=== PATIENT | female | born 2000 | race Caucasian/White ===

== ENCOUNTER 2020-03-29 10:55 | Outpatient (CLI) | payer BC, SELFPAY ==
--- NOTE | ~2020-03-29 | US_ITS ---
US OB /maternal detail DATE: 03/29/2020 12:31 INDICATION: Unsure of RAJENDRA. anatomy screen. TECHNIQUE: Real-time imaging and Doppler analysis COMPARISON: None FINDINGS: Live antonio intrauterine gestation, fetus in variable position during examination. The p lacenta is anterior, lower margin 2 cm above the internal os. The cervix measures 3.8 cm length. Subj ectively normal amount of amniotic fluid. The cerebral ventricles are normal size. The cerebellum, cisterna magna and nuchal fold a ppear normal. The spine appears intact. 4 chamber heart. Normal outflow tracts. The diaphragm is intact. Fluid is demonstrated in the stomach and urinary bladder. The kidne ys are unremarkable. Three-vessel umbilical cord with normal insertion at abdominal wall. Biparietal diameter 4.83 cm; 20 weeks 4 days estimated gestational age Head circumference 18.35 cm; 20 weeks 5 days Abdominal circumference 15.13 cm; 20 weeks 2 days Femur length 3.26 cm; 20 weeks 1 day Composite age by Hadlock formula is 20 weeks 3 days +/- 1 week 3 days; RAJENDRA 08/13/2020 Head circumference/abdominal circumference 1.21, within normal range of 1.07-1.25 Femur length/head circumference 17.79, within normal range of 16.41, 120.01. IMPRESSION: Composite age by Hadlock formula is 20 weeks 3 days +/- 1 week 3 days; RAJENDRA 08/13/2020 Normal sonographic screening Reviewed, dictated and finalized at [facility]. Reviewed, dictated and finalized at [facility]. IMPRESSION: Composite age by Hadlock formula is 20 weeks 3 days +/- 1 week 3 da ys; RAJENDRA 08/13/2020 Normal sonographic screening
== END 2020-03-29 10:56 | disposition home or self-care (01) ==
PROVIDERS: Visit Provider Physician Assistant
DX: Z34.02 Encounter for supervision of normal first pregnancy, second trimester (principal); Z3A.20 20 weeks gestation of pregnancy
CPT/HCPCS: 76805

== ENCOUNTER 2020-06-13 13:09 | Outpatient (CLI) | payer BC, SELFPAY ==
--- NOTE | ~2020-06-13 | US_ITS ---
EXAMINATION: US OB follow up DATE: 06/13/2020 13:42 INDICATION: Routine care during third trimester TECHNIQUE: Real-time ultrasound of the pelvis was performed. The interpreting radiologist was not pre sent for the study. COMPARISON: None. FINDINGS: There is a single living fetus in vertex presentation. The placenta is anterior. heart rate is 173 beats per minute (bpm). The amniotic fluid index is 15.3 cm, which is normal (5th%-95%: 8.8-23. 8 cm at 31 weeks estimated gestational age). The following biometric data were obtained: BPD: 7.9 cm -> 31 weeks 4 days Head circumference: 30.4 cm -> 33 weeks 5 days Abdominal circumference: 25.9 cm -> 30 weeks 1 days Femur length: 5.8 cm -> 30 weeks 3 days Head circumference to abdominal circumference ratio: 1.17 (normal range 0.96-1.16). These measurements are otherwise concordant. Estimated weight: 1619 g (+/-) 253 g. or 3 lbs. 9 oz. (+/-) 9 oz. IMPRESSION: 1. Single living fetus in vertex presentation with heart rate of 173 bpm. 2. Estimated weight is 21st percentile by Hadlock criteria when 08/13/2020 is used as the estim ated date of delivery (RAJENDRA). Please correlate with clinical information or earlier ultrasounds for mo st accurate RAJENDRA. 3. Normal amniotic fluid index of 15.3 cm. 4. tachycardia with heart rate of 173 bpm. 5. Head circumference to abdominal circumference ratio of 1.17 slightly greater than normal range of 0.96-1.16. Reviewed, dictated and finalized at location [facility]. IMPRESSION: 1. Single living fetus in vertex presentation with heart rate of 173 bpm. 2. Estimated weight is 21st percentile by Hadlock criteria when 0 is used as the estimated date of delivery (RAJENDRA). Please correlate with clinic al information or earlier ultrasounds for most accurate RAJENDRA. 3. Normal amniotic fluid index of 15.3 cm. 4. tachycardia with heart rate of 173 bpm. 5. Head circumference to abdominal circumference ratio of 1.17 slightly greater than normal range of 0.96-1.16.
== END 2020-06-13 13:10 | disposition home or self-care (01) ==
LOC: ANHIMG 13:12
PROVIDERS: PCP Pediatrics; Visit Provider Physician Assistant
DX: Z34.93 Encounter for supervision of normal pregnancy, unspecified, third trimester (principal); Z3A.00 Weeks of gestation of pregnancy not specified
CPT/HCPCS: 76816

== ENCOUNTER 2020-06-15 07:44 | Outpatient (CLI) | payer BC, SELFPAY ==
[2020-06-15] MEDS: RHO(D) IMMUNE GLOBULIN 300 MCG SYRINGE IM (18:49)
== END 2020-06-15 07:45 | disposition home or self-care (01) ==
PROVIDERS: PCP Pediatrics; Visit Provider Physician Assistant
DX: Z01.83 Encounter for blood typing (principal)
CPT/HCPCS: 36415; 85461; 90384; 96372; J2790

== ENCOUNTER 2020-07-16 15:45 | Observation (INO) | payer BC, SELFPAY ==
--- NOTE | ~2020-07-16 | US_ITS ---
EXAMINATION: 1. US OB BPP wo non-stress 2. US umbilical doppler DATE: 07/17/2020 08:55 INDICATION: Small for gestational age. Third trimester. TECHNIQUE: Real-time pelvic ultrasound was performed. COMPARISON: Ultrasound 07/16/2020, 03/29/2020 FINDINGS: There is a single living fetus in vertex presentation. The placenta is anterior. heart rate is 141 beats per minute (bpm). Biophysical profile performed by the technologist: breathing (30 sec sustained breathing in 30 minutes): 2 out of 2 movement (3 gross body movements in 30 minutes): 2 out of 2 tone (one episode of zawiesx-iruibjkkc-okazcry limb movement): 2 out of 2 Amniotic fluid pocket (2 cm): 2 out of 2 Total score: 8 out of 8 Umbilical artery pulsed Doppler demonstrates a peak systolic to end-diastolic velocity ratio (S/D rat io) of 1.8 (5th percentile = 1.98, 95th percentile = 3.29). IMPRESSION: 1. Single living fetus in vertex presentation. 2. Biophysical profile 8 out of 8. 3. Low umbilical artery S/D ratio. Reviewed, dictated and finalized at location [facility]. IMPRESSION: 1. Single living fetus in vertex presentation. 2. Biophysical profile 8 out of 8. 3. Low umbilical artery S/D ratio.
--- NOTE | ~2020-07-16 | US_ITS ---
EXAMINATION: US umbilical doppler, US OB follow up w BPP EXAM DATE: 07/16/2020 17:32 INDICATION: SGA small for gestational age. BPP, EFW. 3rd trimester. TECHNIQUE: Pelvic obstetrical transabdominal sonogram was performed by a technologist. There are mu ltiple grayscale and Doppler images available for interpretation. Umbilical artery Doppler ratios and biophysical profile scores requested. Comparison is made to prior examination from 06/13/2020. FINDINGS: There is a single fetus identified in vertex presentation with a heart rate of 155 beats pe r minute. The placenta is located in the anterior fundal position. There is no sonographic evidence of retroplacental hemorrhage identified. BIOPHYSICAL PROFILE (performed by the technologist) breathing (30 sec sustained breathing in 30 minutes): 0 out of 2 movement (3 gross body movements in 30 minutes): 2 out of 2 tone (one episode of yhvmpzy-kfcbraxhp-hwnxcse limb movement): 2 out of 2 Amniotic fluid pocket (2 cm): 2 out of 2 Total score: 6 out of 8 BIOMETRIC DATA: Biparietal diameter (BPD): 31.1cm ----------------> 34 weeks 5 days. Head circumference (HC): 10.9 cm ----------------> not calculated. Abdominal circumference (AC): 29.1 cm ----------> 33 weeks 1 day. Femur length (FL): 6.5 cm --------------------------> 33 weeks 3 days. These measurements are concordant. HC/AC ratio is 1.07 (The 5th -- 95th percentile range is 0.95-1.11. Estimated weight is 2207 g +/- 331 g. This is the 4.5th percentile when the currently reported clinical gestation age 36 weeks 0 days, clinical estimated date of delivery (RAJENDRA-OPE) 08/13 is used. estimated gestational age based on measurements from this exam is 33 weeks 5 days, with an est imated date of delivery (RAJENDRA-AUA) 08/29. UMBILICAL ARTERY DOPPLER Systolic/diastolic ratios obtained as follows: Near baby: 2.1 Mid aspect: 1.8 Near Placenta: 1.7 (The 5th -- 95th percentile range is 2.0 -- 3.3). IMPRESSION: 1. Single fetus in vertex presentation with heart rate 155 beats per minute. 2. Estimated weight of 2207 grams, 4.5th percentile using the currently reported clinical gest ation age of 36 weeks 0 days, RAJENDRA(OPE) 08/13. 3. Abnormal biophysical profile score 6/8, breathing not observed. 4. 2 out of 3 umbilical artery Doppler ratios below normal. No elevated ratios. Reviewed, dictated and finalized at location [facility]. IMPRESSION: 1. Single fetus in vertex presentation with heart rate 155 beats per minute. 2. Estimated weight of 2207 grams, 4.5th percentile using the currently reported clinical gestation age of 36 weeks 0 days, RAJENDRA(OPE) 08/13. 3. Abnormal biophysical profile score 6/8, breathing not observed. 4. 2 out of 3 umbilical artery Doppler ratios below normal. No elevated ratios .
--- NOTE | 2020-07-16 15:45 | OBADM ---
This patient, Jeanine Malhotra, admitted to the OB room OB Post 113 for observation. Patient/family oriented to hospital policies and general routines including ID bracelet, bed and alarms, visiting hours, pain management, procedures, bathroom and other care routines, personal items, smoking policy, room service/diet, and visiting hours. Patient/Family are encouraged to report perceived risks to care and to ask questions if they do not understand what they are told or what they should do.
[2020-07-16 16:15] VITALS: BMI 25.4
[2020-07-16 23:28] VITALS: BP 120/58; PULSE 97
[2020-07-16 23:38] VITALS: TEMP 37.1
[2020-07-17 04:35] VITALS: BP 104/60; PULSE 110
[2020-07-17 04:42] VITALS: TEMP 37.2
[2020-07-17 06:44] VITALS: BP 120/73; PULSE 106
--- NOTE | 2020-07-17 07:29 | PC.NURSE ---
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 Baby tracing was reactive all through the night, U/S read to him with SGA (low percentile), and slow doppler study. Dr Santos wants to call [facility] for consultation and will call me with orders.
--- NOTE | 2020-07-17 07:35 | PC.NURSE ---
Cervical check was closed/soft
[2020-07-17 09:19] VITALS: BP 120/73; PULSE 106; TEMP 37.2
[2020-07-17 09:37] LABS: Basophils Percent Auto 0.5 % (0.2-1.2); Eosinophils Percent Auto 0.3 % (0-4.4); Hematocrit 29.7 % (37.0-47.0); Immature Granulocyte Absolute 0.04 K/mm3 (0.00-0.031); Immature Granulocyte Percent A 0.5 % (0-0.5); Lymphocytes Absolute Auto 2.33 K/mm3 (0.9-3.2); Lymphocytes Percent Auto 26.8 % (18.3-44.2); Mean Corpuscular HGB Conc 30.3 g/dl (32-36); Mean Corpuscular Hemoglobin 22.4 pg (26-34); Mean Corpuscular Volume 73.9 fl (80-100); Mean Platelet Volume 11.6 fl (7.4-10.4); Monocytes Absolute Auto 0.6 K/mm3 (0.1-0.6); Neutrophils Absolute Auto 5.7 K/mm3 (1.3-6.7); Neutrophils Percent Auto 64.9 % (45.5-73.1); Nucleated Red Blood Cells Perc 0.5 % (0.0-0.2); Platelet Count Result 185 k/mm3 (150-375); Red Blood Count 4.02 M/mm3 (4.2-5.4); Red Cell Distribution Width 17.5 % (11.5-14.5); White Blood Count 8.7 K/mm3 (4.5-10.0)
[2020-07-17 09:46] LABS: Alanine Aminotransferase 15 U/L (4-35); Albumin Level 3.4 g/dL (3.5-5.1); Alkaline Phosphatase 145 U/L (38-126); Anion Gap 9 mmol/L (8-16); Aspartate Amino Transferase 27 U/L (14-36); Bilirubin,Total 0.3 mg/dL (0.2-1.3); Blood Urea Nitrogen 9 mg/dL (7-17); Calcium 9.2 mg/dL (8.4-10.2); Carbon Dioxide 22 mmol/L (22-30); Chloride 105 mmol/L (98-107); Estimated CRCL calculation 121 ml/min; Estimated Glomerular Filt Rate > 60; Glucose 77 mg/dL (65-105); Potassium 3.8 mmol/L (3.4-5.0); Sodium 136 mmol/L (137-145); Uric Acid 4.6 mg/dL (2.5-7.5)
--- NOTE | 2020-07-17 10:12 | PC.NURSE ---
Dr Santos here and explained process well to patient. Discussed with MFMelodie at [facility] and decided to send pt there for an evaluation of measurements. They accepted and we will discharge and send her there.
--- NOTE | 2020-07-17 10:18 | P.PNOB_ITS ---
OB - Triage/Final Diagnosis Visit Information Date of evaluation: 07/16/20 Reason for evaluation: other ( growth restriction) Evaluation Baseline heart rate: 135 Variability: Average (6-10) monitor accelerations: Present monitor decelerations: None Cervical dilation (cm): 0 Cervical effacement (%): 0 station: -3 Laboratory results: Laboratory Tests 07/17/20 07/17/20 09:29 09:29 WBC 8.7 RBC 4.02 L Hgb 9.0 L Hct 29.7 L MCV 73.9 L MCH 22.4 L MCHC 30.3 L RDW 17.5 H Plt Count 185 MPV 11.6 H Immature Gran % (Auto) 0.5 Neut % (Auto) 64.9 Lymph % (Auto) 26.8 Door % (Auto) 7.0 Eos % (Auto) 0.3 Baso % (Auto) 0.5 Lymph # (Auto) 2.33 Door # (Auto) 0.6 Eos # (Auto) 0.0 Baso # (Auto) 0.0 Abs Immat Gran (auto) 0.04 H Absolute Neuts (auto) 5.7 Absolute Nucleated RBC 0.0 Nucleated RBC % 0.5 H % Immature Plt Fraction 11.0 Sodium 136 L Potassium 3.8 Chloride 105 Carbon Dioxide 22 Anion Gap 9 BUN 9 Creatinine 0.50 L Estim Creat Clear Calc 121 Estimated GFR > 60 Glucose 77 Uric Acid 4.6 Calcium 9.2 Total Bilirubin 0.3 AST 27 ALT 15 Alkaline Phosphatase 145 H Total Protein 7.0 Albumin 3.4 L Vital signs: Vital Signs - 24 hr 07/16/20 23:28 07/16/20 23:38 07/17/20 04:35 Temperature 98.7 F Pulse Rate 97 110 H Blood Pressure 120/58 L 104/60 07/17/20 04:42 07/17/20 06:44 07/17/20 09:19 Temperature 99 F 99 F Pulse Rate 106 H 106 H Blood Pressure 120/73 120/73 Final Diagnosis (1) growth restriction: Status: Acute Plan: discussed with Ki JOSHI at [facility] He recommends patient coming to the evaluation unit at his high risk clinic today 07/17/2020 to have a repeat Doppler study including middle cerebral artery flow to look for cephalization and if needed delivery I discussed the patient condition and the plan of management the patient and her partner understand and accept I will discharge patient from [facility] from [facility] and send the patient directly to [facility] (2) Heterozygous MTHFR mutation 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
== END 2020-07-17 10:26 | disposition home or self-care (01) ==
PROVIDERS: Admitting Provider Obstetrics & Gynecology; PCP Pediatrics; Visit Provider Obstetrics & Gynecology
DX: O36.5930 Maternal care for other known or suspected poor fetal growth, third trimester, not applicable or unspecified (principal); O35.2XX0 Maternal care for (suspected) hereditary disease in fetus, not applicable or unspecified; E72.12 Methylenetetrahydrofolate reductase deficiency; Z3A.36 36 weeks gestation of pregnancy
CPT/HCPCS: 36415; 76816; 76819; 76820; 80053; 84550; 85025; 85055; G0378; G0379

== ENCOUNTER 2020-08-10 02:42 | Inpatient (IN) | payer BC, SELFPAY ==
[2020-08-10] VITALS (100 sets, daily range): BP systolic 85–152; BP diastolic 51–104; PULSE 84–189; RESP 20; TEMP 36.5–37.1; O2SAT 85–100; BMI 25.9
--- NOTE | 2020-08-10 03:31 | LDADM ---
This patient, Jeanine Malhotra, was admitted to Labor/Delivery/Recovery 106 on 08/10/20 at 02:42. Plans for labor, pain management and were discussed with patient. Patient/family oriented to hospital policies and general routines including ID bracelet, bed and alarms, visiting hours, pain management, procedures, bathroom and other care routines, personal items, smoking policy, room service/diet and guest tray routines, security routines, and visiting hours. Patient/Family are encouraged to report perceived risks to care and to ask questions if they do not understand what they are told or what they should do. See OBIX for further documentation.
[2020-08-10 03:36] LABS: Basophils Percent Auto 0.4 % (0.2-1.2); Eosinophils Absolute Auto 0.1 K/mm3 (0-0.3); Eosinophils Percent Auto 0.6 % (0-4.4); Hematocrit 35.7 % (37.0-47.0); Hemoglobin 10.8 g/dL (12.0-15.0); Immature Granulocyte Absolute 0.04 K/mm3 (0.00-0.031); Immature Granulocyte Percent A 0.4 % (0-0.5); Immature Platelet Fraction Pct 12.7 % (0.9-11.2); Lymphocytes Absolute Auto 3.12 K/mm3 (0.9-3.2); Lymphocytes Percent Auto 31.4 % (18.3-44.2); Mean Corpuscular HGB Conc 30.3 g/dl (32-36); Mean Corpuscular Hemoglobin 22.9 pg (26-34); Mean Corpuscular Volume 75.6 fl (80-100); Monocytes Absolute Auto 0.8 K/mm3 (0.1-0.6); Monocytes Percent Auto 7.6 % (2.6-8.5); Neutrophils Absolute Auto 5.9 K/mm3 (1.3-6.7); Neutrophils Percent Auto 59.6 % (45.5-73.1); Platelet Count Result 206 k/mm3 (150-375); Red Blood Count 4.72 M/mm3 (4.2-5.4); Red Cell Distribution Width 24.2 % (11.5-14.5); White Blood Count 9.9 K/mm3 (4.5-10.0)
[2020-08-10] MEDS: LACTATED RINGERS 1,000 ML 125 ML IV CONT ×3 (08:30→14:39)
[2020-08-10] MEDS: OXYTOCIN 30 UNITS/NS 500 ML 30 UNITS/500 ML BAG 125 UNITS IV CONT ×2 (08:37→23:46)
--- NOTE | 2020-08-10 11:15 | PM.IMHP ---
H&P: HPI History of Present Illness Date/Time: 08/10/20 11:15 Chief complaint: SROM Narrative: Jeanine Malhotra is a 19 year old female at 39 weeks and 4 days gestation initially presented to labor and delivery triage with reports of leaking of fluid. Spontaneous rupture of membranes was confirmed on exam in Labor and delivery triage she was noted to be 2 cm dilated. She has regular care with Dr. Santos. She has no other complaints at this time. Review of Systems Constitutional: Constitutional: Reports no additional constitutional complaints Eyes: Eyes: Reports no additional eye complaints ENT: Reports system reviewed and no additional complaints, except as documented Cardiovascular: Cardiovascular: Reports no additional cardiovascular complaints Respiratory: Respiratory: Reports no additional respiratory complaints Gastrointestinal: Gastrointestinal: Reports no additional gastrointestinal complaints Genitourinary: Genitourinary: Reports no additional female genitourinary complaints Musculoskeletal: Musculoskeletal: Reports no additional musculoskeletal complaints Integumentary/Breasts: Skin/Breast: Reports system reviewed and no additional complaints, except as docu Neurologic: Reports system reviewed and no additional complaints, except as documented Psychiatric: Psychiatric: Reports no additional psychiatric complaints Endocrine: Endocrine: Reports no additional endocrine complaints Hematologic/Lymphatic: Hematologic/Lymphatic: Reports no additional hematologic/lymphatic complaints Allergic/Immunologic: Allergic/Immunologic: Reports no additional allergic/immunologic complaints PMFSH Past Medical History Medical History growth restriction Heterozygous MTHFR mutation [id number] Family History Family History Other No pertinent family history Social History Social History Smoking status: Never smoker Substance use: never Gender identity (if verbalized by the patient): Female Spiritual care concerns: No Meds Home Medications and Allergies Home Medications Medication Instructions Recorded Confirmed Type PNV cmb#95-ferrous fumarate-FA 1 tablet PO DAILY 07/15/20 08/10/20 History [] ferrous sulfate 325 mg PO DAILY 08/10/20 08/10/20 History Allergies Allergy/AdvReac Type Severity Reaction Status Date / Time No Known Allergies Allergy Verified 07/15/20 14:32 Vital Signs Vital Signs - 24 hr 08/10/20 02:57 08/10/20 03:15 08/10/20 03:30 Temperature Pulse Rate 134 H 124 H 120 H Respiratory Rate Blood Pressure 131/90 129/87 121/81 08/10/20 03:45 08/10/20 04:00 08/10/20 04:15 Temperature 36.8 C Pulse Rate 120 H 117 H 108 H Respiratory Rate Blood Pressure 116/81 124/78 124/78 08/10/20 04:30 08/10/20 04:46 08/10/20 05:00 Temperature Pulse Rate 114 H 99 98 Respiratory Rate Blood Pressure 116/77 104/59 L 99/64 L 08/10/20 05:15 08/10/20 05:30 08/10/20 08:28 Temperature 36.5 C Pulse Rate 99 96 119 H Respiratory Rate 20 Blood Pressure 109/65 109/63 145/98 H 08/10/20 08:38 08/10/20 09:18 08/10/20 09:30 Temperature 37.0 C Pulse Rate 109 H 115 H Respiratory Rate Blood Pressure 121/87 130/87 08/10/20 09:52 08/10/20 10:01 08/10/20 10:30 Temperature 36.9 C Pulse Rate 102 H 105 H Respiratory Rate Blood Pressure 128/87 135/95 H Exam Const: General: cooperative, healthy appearing, comfortable, no acute distress, well developed, alert, awake and Physically active Nutritional Appearance: average body habitus Orientation/consciousness: oriented to person, oriented to place, oriented to time and patient oriented x3 Limitations: no limitations HENMT: Head: normocephalic and atraumatic Eyes: General: appearance normal, both eyes and all
--- NOTE | 2020-08-10 11:24 | WPDHPUPDATE1 ---
History and Physical Update Update Date/Time: 08/10/20 11:24 History and Physical has been reviewed, including an updated exam of the patient. There are NO changes in the patient's condition. Risks, benefits, and alternatives have been discussed and questions answered. Patient agrees to proceed with procedure.
[2020-08-10] MEDS: fentaNYL CITRATE INJ (*CRX) 100 MCG/2 ML VIAL IV PUSH ×2 (11:25→12:38)
--- NOTE | 2020-08-10 12:04 | WPDANESEPP ---
Anes - Eval Pre Procedure Procedure: Labor Epidural Date/Time: 08/10/20 12:04 Pre Op Diagnosis: SROM Patient Data Age: 19 Gender: F Height: 1.59 m Weight: 65.5 kg Last Vital Signs Temp 36.9 C 08/10/20 09:52 Pulse 94 08/10/20 12:01 Resp 20 08/10/20 05:30 BP 119/85 08/10/20 12:01 Allergies Allergy/AdvReac Type Severity Reaction Status Date / Time No Known Allergies Allergy Verified 07/15/20 14:32 Home Medications Medication Instructions Recorded Confirmed Type PNV cmb#95-ferrous fumarate-FA 1 tablet PO DAILY 07/15/20 08/10/20 History [] ferrous sulfate 325 mg PO DAILY 08/10/20 08/10/20 History Laboratory Tests 08/10/20 08/10/20 08/10/20 03:24 03:24 03:24 WBC 9.9 K/mm3 K/mm3 (4.5-10.0) RBC 4.72 M/mm3 M/mm3 (4.2-5.4) Hgb 10.8 g/dL L g/dL (12.0-15.0) Hct 35.7 % L % (37.0-47.0) MCV 75.6 fl L fl (80-100) MCH 22.9 pg L pg (26-34) MCHC 30.3 g/dl L g/dl (32-36) RDW 24.2 % H % (11.5-14.5) Plt Count 206 k/mm3 k/mm3 (150-375) MPV TNP Immature Gran % (Auto) 0.4 % % (0-0.5) Neut % (Auto) 59.6 % % (45.5-73.1) Lymph % (Auto) 31.4 % % (18.3-44.2) Bradley % (Auto) 7.6 % % (2.6-8.5) Eos % (Auto) 0.6 % % (0-4.4) Baso % (Auto) 0.4 % % (0.2-1.2) Lymph # (Auto) 3.12 K/mm3 K/mm3 (0.9-3.2) Bradley # (Auto) 0.8 K/mm3 H K/mm3 (0.1-0.6) Eos # (Auto) 0.1 K/mm3 K/mm3 (0-0.3) Baso # (Auto) 0.0 K/mm3 K/mm3 (0.0-0.1) Abs Immat Gran (auto) 0.04 K/mm3 H K/mm3 (0.00-0.031) Absolute Neuts (auto) 5.9 K/mm3 K/mm3 (1.3-6.7) Absolute Nucleated RBC 0.0 K/mm3 K/mm3 (0.0-0.012) Nucleated RBC % 0.0 % % (0.0-0.2) % Immature Plt Fraction 12.7 % H % (0.9-11.2) RPR Pending Blood Type O Negative Antibody Screen Positive Antibody Identification Passive Due to RH Imm Glob Antigen Identification Cancelled JENNIFER, IgG Interpret Negative JENNIFER, Poly Interpret Negative JENNIFER, Complement Interp Not Performed Patient hx anesthesia problems: none Family hx anesthesia problems: none PMFSH Past Medical History Medical History growth restriction Heterozygous MTHFR mutation [id number] Family History Family History Other No pertinent family history Social History Social History Smoking status: Never smoker Substance use: never Gender identity (if verbalized by the patient): Female Spiritual care concerns: No Exam Day of Procedure 08/10/20 12:04 Patient weight: normal Heart: regular rate and rhythm Lungs: normal air movement Airway: Mallampati scale class II Neurological: alert and oriented
[2020-08-10] MEDS: AMPICILLIN 2 GM/NS 100 ML 2 GM/100 ML BAG IVPB (19:56)
[2020-08-11] VITALS (31 sets, daily range): BP systolic 126–149; BP diastolic 83–102; PULSE 101–127; RESP 12–16; TEMP 36.8–37.1; O2SAT 99–100
--- NOTE | 2020-08-11 | PM.OBPRVD ---
OB - Delivery Note Procedure Delivery date: 08/10/20 Procedure: Normal spontaneous vaginal delivery events: Premature Rupture of Membrane Induction method: per pitocin protocol Delivery monitor: external FHT, external uterine and internal uterine Route of delivery: Laceration Description: Perineal - 2nd Degree and Labial (bilateral) Delivery repair: vicryl Specimen: No Estimated blood loss (mL): 200 Anesthesia type: Epidural Narrative: Once she was noted to be complete and ready to push, the labor bed was broken down and legs were placed in stirrups for support. With contractions and maternal efforts, the presented in ANDIE position. The head was delivered. Checked for nuchal cord, loose nuchal cordx1 noted and reduced. Gentle downward traction was applied and the anterior shoulder delivered without issues, followed by the posterior shoulder and rest of the body. was vigorous and crying, so delayed cord clamping of approximately 1 minute was performed. The cord was clamped and cut. Cord gasses collected. Placenta was delivered spontaneously. IV oxytocin administered and fundal massage applied. Exam was performed to identify any lacerations. 2nd degree perineal laceration was repaired with 2-0 Vicryl. Bilateral labial tears repaired with 2-0 Vicryl. Good hemostasis noted. Patient tolerated the procedure well. All instrument and sponge counts were correct at the end of the procedure. Baby Date of : 08/10/20 Time of : 23:18 Weeks of gestation at delivery: 39 Infant gender: Male Weight (pounds): 7 Weight (ounces): 5 presentation: vertex position: Left Occiput Anterior Placenta delivery description: Spontaneous cord vessel description: 3 Vessels score one minute: 8 score five minutes: 9
[2020-08-11] MEDS: WITCH HAZEL 40 PADS 1 PAD TOPICAL (01:01)
[2020-08-11] MEDS: BENZOCAINE 20% AER SPR (*SP) 56 GM CAN 1 SPRAY TOPICAL (01:01)
[2020-08-11] MEDS: IBUPROFEN 600 MG TABLET PO ×3 (01:01→21:36)
[2020-08-11] MEDS: ACETAMINOPHEN 325 MG TABLET 650 MG PO (01:03)
[2020-08-11] MEDS: ONDANSETRON INJ 4 MG/2 ML VIAL IV PUSH (01:50)
[2020-08-11 02:00] LABS: Hematocrit 29.4 % (37.0-47.0); Hemoglobin 8.8 g/dL (12.0-15.0); Immature Platelet Fraction Pct 10.9 % (0.9-11.2); Mean Corpuscular HGB Conc 29.9 g/dl (32-36); Mean Corpuscular Hemoglobin 22.4 pg (26-34); Platelet Count Result 157 k/mm3 (150-375); Red Blood Count 3.92 M/mm3 (4.2-5.4); Red Cell Distribution Width 24.1 % (11.5-14.5); White Blood Count 14.9 K/mm3 (4.5-10.0)
[2020-08-11 02:15] LABS: Alanine Aminotransferase 14 U/L (4-35); Albumin Level 2.6 g/dL (3.5-5.1); Alkaline Phosphatase 142 U/L (38-126); Anion Gap 9 mmol/L (8-16); Aspartate Amino Transferase 36 U/L (14-36); Bilirubin,Total 0.3 mg/dL (0.2-1.3); Blood Urea Nitrogen 14 mg/dL (7-17); Calcium 8.5 mg/dL (8.4-10.2); Carbon Dioxide 18 mmol/L (22-30); Chloride 109 mmol/L (98-107); Estimated CRCL calculation 103 ml/min; Estimated Glomerular Filt Rate > 60; Glucose 90 mg/dL (65-105); Potassium 3.9 mmol/L (3.4-5.0); Sodium 136 mmol/L (137-145)
[2020-08-11 02:33] LABS: Creatinine Urine 140.6 mg/dL
[2020-08-11] MEDS: LACTATED RINGERS 500 ML 999 ML IV CONT (02:54)
--- NOTE | 2020-08-11 03:00 | ECG_ITS ---
Measurements Intervals [place]itt Rate: 111 P: 35 WV: 115 QRS: 92 QRSD: 85 T: 0 QT: 301 QTc: 409 Interpretive Statements SINUS TACHYCARDIA WITH SHORT WV INTERVAL RIGHT AXIS DEVIATION NONSPECIFIC T-WAVE ABNORMALITY- ANT/INF LEADS ABNORMAL ECG Electronically Signed On 08-11-2020 9:01:48 DENTAL LABORATORY TECHNICIAN by Bryan Bee D.O.
[2020-08-11] MEDS: miSOPROStol 200 MCG TABLET 1000 MCG RECTAL (07:27)
--- NOTE | 2020-08-11 08:40 | PM.OBPNVD ---
OB - PN: Subj Subjective Date/time seen: 08/11/20 08:40 S/p on 08/10. Patient states she is doing well. Pain is controlled. Tolerating diet. Some lightheadedness with quick movement. Denies headaches, blurry vision, scotomas. OB - PN: Obj Data Labs CBC & Chem 7: 08/11/20 01:25 08/11/20 01:25 Labs: Laboratory Results - last 24 hr 08/11/20 08/11/20 08/11/20 01:25 01:25 01:39 WBC 14.9 H RBC 3.92 L Hgb 8.8 L Hct 29.4 L MCV 75.0 L MCH 22.4 L MCHC 29.9 L RDW 24.1 H Plt Count 157 MPV TNP % Immature Plt Fraction 10.9 Sodium 136 L Potassium 3.9 Chloride 109 H Carbon Dioxide 18 L Anion Gap 9 BUN 14 D Creatinine 0.60 L Estim Creat Clear Calc 103 Estimated GFR > 60 Glucose 90 Calcium 8.5 Total Bilirubin 0.3 AST 36 ALT 14 Alkaline Phosphatase 142 H Total Protein 5.0 L Albumin 2.6 L Urine Creatinine 140.6 OB - PN A/P Assessment and Plan (1) (normal spontaneous vaginal delivery): Code(s): O80 - Encounter for full-term uncomplicated delivery Status: Acute Assessment and Plan: Routine care Pain management Ambulate (2) Premature rupture of membranes: Code(s): O42.90 - Premature rupture of membranes, unspecified as to length of time between rupture and onset of labor, unspecified weeks of gestation Status: Acute (3) Gestational HTN: Code(s): O13.9 - Gestational [-induced] hypertension without significant proteinuria, unspecified trimester Status: Acute Assessment and Plan: Pre-E labs WNL. Monitor signs and symptoms Time Spent With Patient Time: Total time spent is greater than 50% in coordination of care (as documented) at patient's floor/unit and/or counseling patient: Exam Const: General: cooperative, healthy appearing, comfortable and no acute distress Resp: Effort & Inspection: normal respiratory effort and able to speak in complete sentences Cardio: Rate: tachycardic GI: GI Palp: Yes Soft to palpation and No Tenderness to palpation present (GI) : Manual OB Exam: Deferred manual OB exam Neuro: General: oriented to person, oriented to place, oriented to time and patient oriented x3 Psych: Appearance: grossly normal Mental Status: mental status grossly normal
[2020-08-11] MEDS: DOCUSATE SODIUM 100 MG CAPSULE PO (11:53)
[2020-08-11] MEDS: MULTIVIT/MIN/PREN/FOL AC/IRON TABLET 1 TAB PO (11:54)
[2020-08-11] MEDS: POLYSACCHARIDE IRON COMPLEX 150 MG CAPSULE PO (11:54)
--- NOTE | 2020-08-11 13:15 | WPDANLDPN2 ---
Anes-Prog Note L&D Date/Time: 08/11/20 13:15 Comfortable throughout: labor and delivery Neuraxial method: epidural Epidural/Spinal procedure site: clean & non-tender Neuro status: Neuro function grossly intact. Cardiovascular status: normal Respiratory status: normal Airway patency: baseline Mental status: baseline Post-Op hydration status: normal Vital Signs: Last Vital Signs Temp 36.8 C 08/11/20 03:55 Pulse 116 H 08/11/20 03:55 Resp 16 08/11/20 03:55 BP 144/91 H 08/11/20 03:55 Pulse Ox 100 08/11/20 03:22 Pain score (VAS): 0/10. Patient resting in bed at time of assessment, appears comfortable. Support person at bedside. I/O: Intake & Output 08/10/20 08/11/20 08/11/20 23:59 07:59 15:59 Output Total 446 Balance -446 Post-procedural complaints: none Patient feedback: Patient satisfied with anesthetic care.
[2020-08-11] MEDS: HYDROcodone/acetaminophen (*CRX) 5-325 MG TABLET 1 TAB PO ×2 (15:57→21:37)
[2020-08-12] MEDS: HYDROcodone/acetaminophen (*CRX) 5-325 MG TABLET 1 TAB PO (04:58)
[2020-08-12 05:28] LABS: Hematocrit 25.5 % (37.0-47.0); Hemoglobin 7.6 g/dL (12.0-15.0)
--- NOTE | 2020-08-12 07:36 | PM.GYNPNOP ---
LINE MOVER - A/P Assessment and plan (1) (normal spontaneous vaginal delivery): Code(s): O80 - Encounter for full-term uncomplicated delivery Status: Acute Assessment and Plan: Routine care Pain management Ambulate (2) Premature rupture of membranes: Code(s): O42.90 - Premature rupture of membranes, unspecified as to length of time between rupture and onset of labor, unspecified weeks of gestation Status: Acute (3) Gestational HTN: Code(s): O13.9 - Gestational [-induced] hypertension without significant proteinuria, unspecified trimester Status: Acute Assessment and Plan: Pre-E labs WNL. Monitor signs and symptoms (4) Urinary retention: Code(s): R33.9 - Retention of urine, unspecified Status: Acute Assessment and Plan: Remove herrera this morning Voiding trial Time Spent With Patient Time: Total time spent is greater than 50% in coordination of care (as documented) at patient's floor/unit and/or counseling patient: Time with patient: 15 - 25 minutes LINE MOVER- PN:Subj Post-Op Subjective Date/time seen: 08/12/20 07:36 S/p on 08/10. Patient states she is doing well. Perineal swelling is improving. Had urinary retention, indwelling catheter was placed yesterday and is draining clear urine. Exam Const: General: cooperative, healthy appearing, comfortable, no acute distress, well developed, alert, awake and Physically active Nutritional Appearance: average body habitus Orientation/consciousness: oriented to person, oriented to place, oriented to time and patient oriented x3 Limitations: no limitations HENMT: Head: normocephalic and atraumatic Eyes: General: appearance normal, both eyes and all related structures Resp: Effort & Inspection: normal respiratory effort and able to speak in complete sentences Cardio: Rate: regular rate Neuro: General: oriented to person, oriented to place, oriented to time and patient oriented x3 Cognition (Neuro): normal cognition Speech: normal speech Psych: Appearance: grossly normal Mental Status: mental status grossly normal Speech and movement: Normal speech and movement present LINE MOVER - PN: Obj Data Vital Signs Vital Signs: Vital Signs - 24 hr 08/11/20 18:55 Temperature 37.1 C Pulse Rate 101 H Respiratory Rate 12 Blood Pressure 132/85 Pulse Oximetry 100 Intake/Output Intake/Output: Intake & Output 11/1308/10/20 08/11/20 08/12/20 23:59 23:59 23:59 23:59 Intake Total 2500 Output Total 2796 Balance 2500 -2796 Meds/Results Medications: Active Medications Generic Name Dose Route Start Last Admin Trade Name Freq PRN Reason Stop Dose Admin Acetaminophen 650 mg 08/11/20 00:03 08/11/20 01:03 Acetaminophen 325 Mg Tablet PO 650 mg Q6H PRN Administration Mild Pain (1-3) or Headache Hydrocodone Bitart/Acetaminophen 1 tab 08/11/20 15:00 08/12/20 04:58 Hydrocodone/Acetaminophen (*Crx) 5-325 Mg Tablet PO 1 tab Q3HR PRN Administration Pain Rated 4-6 Benzocaine 1 spray 08/11/20 00:03 08/11/20 01:01 Benzocaine 20% Aer Spr (*Sp) 56 Gm Can TOPICAL 1 spray PRN PRN Administration Perineal Discomfort Dibucaine 1 applic 08/11/20 00:03 Dibucaine 1% Ointment 30 Gm Tube TOPICAL PRN PRN Hemorrhoids Docusate Sodium 100 mg 08/11/20 00:03 08/11/20 11:53 Docusate Sodium 100 Mg Capsule PO 100 mg BID PRN Administration Constipation Emollient Ointment 1 applic 08/11/20 00:03 Lanolin (Lansinoh) 7.5 Gm Cream TOPICAL PRN PRN Sore Nipples Ibuprofen 600 mg 08/11/20 00:03 08/11/20 21:36 Ibuprofen 600 Mg Tablet PO 600 mg Q6H PRN Administration Cramping Naloxone HCl 0.1 mg 08/10/20 03:10 Naloxone Hcl 0.4 Mg/Ml Vial IV PUSH Q2M PRN Respiratory rate less than 10 Naloxone HCl 0.1 mg 08/10/20 12:07 Naloxone Hcl 0.4 Mg/Ml Vial IV PUSH ONCE PRN for resp.
[2020-08-12 07:55] VITALS: BP 125/78; PULSE 94; RESP 16; TEMP 37.1; O2SAT 100
[2020-08-12] MEDS: MULTIVIT/MIN/PREN/FOL AC/IRON TABLET 1 TAB PO (08:08)
[2020-08-12] MEDS: DOCUSATE SODIUM 100 MG CAPSULE PO (08:08)
[2020-08-12] MEDS: IBUPROFEN 600 MG TABLET PO (08:08)
[2020-08-12] MEDS: POLYSACCHARIDE IRON COMPLEX 150 MG CAPSULE PO (08:08)
[2020-08-12 12:29] LABS: Rapid Plasma Reagin Non-Reactive (NonReactive)
[2020-08-12] MEDS: RHO(D) IMMUNE GLOBULIN 300 MCG SYRINGE IM (13:11)
--- NOTE | 2020-08-12 15:00 | PC.NURSE ---
Patient instructed to view the discharge video Mother & Baby Care, The First Two Weeks online. Patient was given the opportunity and encouraged to ask questions. Patient verbalized understanding of information shared and has been given the mother/baby guide for home reference.
--- NOTE | 2020-08-12 16:57 | PM.OBDSVD ---
DS: Admitting Diagnosis Admitting Diagnosis Admitting Diagnosis: SROM DS: Discharge Diagnosis Discharge Diagnosis (1) (normal spontaneous vaginal delivery): Code(s): O80 - Encounter for full-term uncomplicated delivery Status: Acute (2) Gestational HTN: Code(s): O13.9 - Gestational [-induced] hypertension without significant proteinuria, unspecified trimester Status: Acute OB - DS: Summary OB Procedures : None OB Procedures Intrapartum: Spontaneous Vag Delivery OB Procedures: : None Status at Discharge Overall status at discharge: patient is progressing back to baseline Time Spent with Patient Time attestation: Total time spent providing and/or coordinating discharge services: Exam Const: General: cooperative, healthy appearing, comfortable, no acute distress, well developed, alert, awake and Physically active Nutritional Appearance: average body habitus Orientation/consciousness: oriented to person, oriented to place, oriented to time and patient oriented x3 Limitations: no limitations HENMT: Head: normocephalic and atraumatic Eyes: General: appearance normal, both eyes and all related structures Resp: Effort & Inspection: normal respiratory effort and able to speak in complete sentences Cardio: Rate: regular rate GI: GI Palp: No abdominal tenderness and Yes Soft to palpation Other: fundus firm Neuro: General: oriented to person, oriented to place, oriented to time and patient oriented x3 Cognition (Neuro): normal cognition Speech: normal speech Psych: Appearance: grossly normal Mental Status: mental status grossly normal Speech and movement: Normal speech and movement present DS: Data Data Completed and Pending Labs on day of discharge: Labs from last 24 hours 08/12/20 08/12/20 08/10/20 04:31 04:31 03:24 Hgb 7.6 L Hct 25.5 L RPR Non-reactive Blood Type O Negative Antibody Screen TNP Screen Negative Baby's Blood Type O pos Baby's JENNIFER Negative Doses of RhIg Required 1 Discharge Plan Discharge Attending physician on discharge: Jeannette Bach Discharging Clinician: Jeannette Bach Patient Disposition: Home, Self-Care Activity: may shower, as tolerated and pelvic rest Diet: regular Discharge Instructions: Education: Mom and Baby Guide and Preeclampsia Handout Given to: Mother Follow-Up: Call your delivering provider's office for an appointment to be seen in: 3 weeks Mom and baby should come to the [facility] for the follow-up appointment. Appointment Date/Time: August 14, 2020 at 11:00 am What to expect at your follow-up visit: Physical Assessment Call [phone] if you are unable to keep your appointment time. BREAST CARE: * Wear a snug supportive bra. * For engorgement discomfort: Bottle Feeding: * May apply ice packs EPISIOTOMY/PERINEAL CARE: * Until bleeding stops, use your madhuri bottle after urinating * Change your pad frequently throughout the day * You may take sitz baths several times a day (fill your bathtub with warm water and soak for 20 minutes.) Do NOT bathe in the water * No tub baths until seen by your physician - You may shower ACTIVITY: * Rest as much as possible. * Do not exercise or lift anything heavier than your baby (such as laundry or other children.) * Avoid stairs or driving as much as possible. * Do not put anything into the vagina. No douching, tampons, or sexual activity until seen by physician. NOTIFY PHYSICIAN IF YOU HAVE ANY QUESTIONS OR IF ANY OF THE FOLLOWING SYMPTOMS OCCUR: * If your episiotomy or perineum becomes more red, swollen, or painful than what you have experienced in the hospital. * If your vaginal bleeding becomes foul smelling. * If your vaginal bleeding becomes more heavy than a period or if your bleeding changes from pink to bright red. However, you may pass an occasional wal
== END 2020-08-12 15:47 | disposition home or self-care (01) | DRG 560 ==
LOC: ANHLDR 03:17 → ANHOB2 08-12 08:35 → ANHLDR 08-14 09:52 → ANHOB2 08-14 09:52
PROVIDERS: Admitting Provider Obstetrics & Gynecology; PCP Pediatrics; Visit Provider Obstetrics & Gynecology
DX: O42.92 Full-term premature rupture of membranes, unspecified as to length of time between rupture and onset of labor (principal); Z37.0 Single live birth; Z3A.39 39 weeks gestation of pregnancy; O99.284 Endocrine, nutritional and metabolic diseases complicating childbirth; E72.12 Methylenetetrahydrofolate reductase deficiency; O70.1 Second degree perineal laceration during delivery; O69.81X0 Labor and delivery complicated by cord around neck, without compression, not applicable or unspecified; O13.4 Gestational [pregnancy-induced] hypertension without significant proteinuria, complicating childbirth; O99.893 Other specified diseases and conditions complicating puerperium; R33.9 Retention of urine, unspecified
CPT/HCPCS: 36415; 80053; 82570; 84112; 85014; 85018; 85025; 85027; 85055; 85461; 86592; 86850; 86880; 86900; 86901; 90384; 93005; A9270; J0290; J2405; J2590; J2790; J2795; J3010; J7120

== ENCOUNTER 2020-08-13 02:05 | Observation (INO) | payer BC, SELFPAY ==
[2020-08-13] VITALS (33 sets, daily range): BP systolic 123–157; BP diastolic 80–100; PULSE 89–113; RESP 15–18; TEMP 36.4–37.1; BMI 26.4
--- NOTE | 2020-08-13 02:00 | OBADM ---
This patient, Jeanine Malhotra, admitted to the OB room OB Post 117 for observation. Patient/family oriented to hospital policies and general routines including ID bracelet, bed and alarms, visiting hours, pain management, procedures, bathroom and other care routines, personal items, smoking policy, room service/diet, and visiting hours. Patient/Family are encouraged to report perceived risks to care and to ask questions if they do not understand what they are told or what they should do.
--- NOTE | 2020-08-13 02:00 | PC.NURSE ---
Patient states she delivered 08/10. Discharged home today. States she felt like her blood pressure was high onset 1 hour ago. Symptoms included feeling like heart was pounding in her head. NO headache. States she had a fullness in her head. Pt denies high blood pressure with . States her blood pressures were elevated post .
[2020-08-13] MEDS: LABETALOL HCL 100 MG TABLET PO ×2 (02:40→04:47)
[2020-08-13 02:43] LABS: Basophils Percent Auto 0.3 % (0.2-1.2); Eosinophils Absolute Auto 0.1 K/mm3 (0-0.3); Eosinophils Percent Auto 1.4 % (0-4.4); Hematocrit 24.4 % (37.0-47.0); Hemoglobin 7.4 g/dL (12.0-15.0); Immature Granulocyte Absolute 0.07 K/mm3 (0.00-0.031); Immature Granulocyte Percent A 0.7 % (0-0.5); Immature Platelet Fraction Pct 7.3 % (0.9-11.2); Lymphocytes Absolute Auto 2.74 K/mm3 (0.9-3.2); Lymphocytes Percent Auto 27.1 % (18.3-44.2); Mean Corpuscular HGB Conc 30.3 g/dl (32-36); Mean Corpuscular Hemoglobin 23.6 pg (26-34); Mean Corpuscular Volume 77.7 fl (80-100); Mean Platelet Volume 11.7 fl (7.4-10.4); Monocytes Absolute Auto 0.6 K/mm3 (0.1-0.6); Monocytes Percent Auto 6.2 % (2.6-8.5); Neutrophils Absolute Auto 6.5 K/mm3 (1.3-6.7); Neutrophils Percent Auto 64.3 % (45.5-73.1); Platelet Count Result 177 k/mm3 (150-375); Red Blood Count 3.14 M/mm3 (4.2-5.4); Red Cell Distribution Width 24.4 % (11.5-14.5); White Blood Count 10.1 K/mm3 (4.5-10.0)
[2020-08-13 02:55] LABS: Alanine Aminotransferase 16 U/L (4-35); Albumin Level 3.1 g/dL (3.5-5.1); Alkaline Phosphatase 116 U/L (38-126); Anion Gap 6 mmol/L (8-16); Aspartate Amino Transferase 37 U/L (14-36); Bilirubin,Total 0.1 mg/dL (0.2-1.3); Blood Urea Nitrogen 9 mg/dL (7-17); Calcium 8.9 mg/dL (8.4-10.2); Carbon Dioxide 27 mmol/L (22-30); Chloride 107 mmol/L (98-107); Estimated Glomerular Filt Rate > 60; Glucose 83 mg/dL (65-105); Potassium 3.8 mmol/L (3.4-5.0); Sodium 140 mmol/L (137-145); Uric Acid 5.7 mg/dL (2.5-7.5)
[2020-08-13 03:35] LABS: Creatinine Urine 32.4 mg/dL; Total Protein Urine Random 17 mg/dL
[2020-08-13 03:38] LABS: Add Urine Microscopic? YES; Appearance Urine Clear (Clear); Bilirubin Urine Negative (Negative); Blood Urine 3+ (Negative); Color Urine Straw (Yellow); Glucose Urine UA Negative (Negative); Ketones Urine Negative (Negative); Leukocyte Esterase Ur Trace LEU/UL (NEGATIVE); Mucus Urine Rare /lpf; Nitrate Urine Negative (Negative); Protein Urine Negative (Negative); RBC Urine >75 /hpf (0-2); Specific Grav Ur 1.011 (1.001-1.035); Squamous Epithelial Cell Urine Rare /hpf (Few); Urobilinogen Urine Negative mg/dL (<2.0); WBC Urine 16-20 /hpf (0-3)
[2020-08-13] MEDS: LACTATED RINGERS 1,000 ML 75 ML IV CONT ×2 (04:48→15:22)
[2020-08-13] MEDS: MAGNESIUM SULF 4 GM/WATER100ML 4 GM/100 ML BAG IVPB (04:49)
[2020-08-13] MEDS: WITCH HAZEL 40 PADS 1 PAD TOPICAL (05:06)
[2020-08-13] MEDS: DIBUCAINE 1% OINTMENT 30 GM TUBE 1 APPLIC TOPICAL (05:07)
[2020-08-13] MEDS: BENZOCAINE 20% AER SPR (*SP) 56 GM CAN 1 SPRAY TOPICAL (05:08)
[2020-08-13] MEDS: MAGNESIUM SULF 20GM/WATER500ML 500 ML 50 MG IV CONT ×2 (05:19→15:21)
--- NOTE | 2020-08-13 05:48 | PC.NURSE ---
Addendum entered by Keenan Vasquez RN 08/13/20 06:51: TIME SHOULD BE 0148 Original Note: Orders received from Dr. Santos. Will give Labatolol and order [facility] labs.
--- NOTE | 2020-08-13 06:52 | PC.NURSE ---
0415 Pt appears very anxious and states she is very shaky. Pt denies any headache or blurred vision. Denies abdominal pain. Pt states she has had intermittent shakiness since delivery. Pt reflexes 4+, 1-2 beats per clonus noted bilateral. Pt appears anxious. Update on pt and labs called to Dr. Santos. Orders received.
--- NOTE | 2020-08-13 06:57 | PC.NURSE ---
ALL DOCUMENTATION DONE ON THIS PT NOTED Mario Alberto HERNANDES RN WAS DONE BY Radha FOWLER RN.
[2020-08-13] MEDS: LABETALOL HCL 100 MG TABLET 200 MG PO ×2 (10:29→16:21)
--- NOTE | 2020-08-13 13:01 | PC.NURSE ---
1255- here to assess pt, no new orders at this time.
[2020-08-13] MEDS: ACETAMINOPHEN 500 MG TABLET 1000 MG PO ×2 (14:31→20:55)
--- NOTE | 2020-08-13 20:26 | PM.IMHP ---
H&P: HPI History of Present Illness Date/Time: 08/13/20 20:26 Chief complaint: High Blood Pressure Symptoms Narrative: Jeanine Malhotra is a 19 year old female G1 now P1 is status post vaginal delivery by Dr. Garcia a a viable male who presented to [facility] in [place] for woman with preeclampsia manifested as hypertension headache visual changes hyper reflexia edema. She now is being admitted for hypertension preeclampsia protocol including antihypertensive agents labetalol and seizure prevention magnesium sulfate. Review of Systems Review of Systems: All systems reviewed & are unremarkable except as noted in HPI and below Constitutional: Constitutional: Reports headache(s) Eyes: Eyes: Reports blurry vision and Reports change in vision ENT: Reports system reviewed and no additional complaints, except as documented Cardiovascular: Cardiovascular: Reports pedal edema Respiratory: Respiratory: Reports no additional respiratory complaints Gastrointestinal: Gastrointestinal: Reports no additional gastrointestinal complaints Genitourinary: Genitourinary: Reports no additional female genitourinary complaints Musculoskeletal: Musculoskeletal: Reports no additional musculoskeletal complaints Integumentary/Breasts: Skin/Breast: Reports system reviewed and no additional complaints, except as docu Neurologic: Reports system reviewed and no additional complaints, except as documented, Reports headache(s) and Reports other ( Hyper reflexia) Psychiatric: Psychiatric: Reports no additional psychiatric complaints and Reports other ( feeling like in a fog) Endocrine: Endocrine: Reports no additional endocrine complaints Hematologic/Lymphatic: Hematologic/Lymphatic: Reports no additional hematologic/lymphatic complaints Allergic/Immunologic: Allergic/Immunologic: Reports no additional allergic/immunologic complaints [facility] Past Medical History Medical History (Updated 08/13/20 @ 20:40 by Ramon Santos MD) growth restriction Gestational HTN 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 (normal spontaneous vaginal delivery) Family History Family History Other No pertinent family history Social History Social History Smoking status: Never smoker Substance use: never Gender identity (if verbalized by the patient): Female Spiritual care concerns: No Meds Home Medications and Allergies Home Medications Medication Instructions Recorded Confirmed Type PNV cmb#95-ferrous fumarate-FA 1 tablet PO DAILY 07/15/20 08/13/20 History [] docusate sodium 100 mg PO BID PRN #60 cap 08/12/20 08/13/20 Rx ferrous sulfate 325 mg PO DAILY #60 tablet 08/12/20 08/13/20 Rx hydrocortisone [Anusol-HC] 1 applic WA HS PRN #30 g 08/12/20 08/13/20 Rx ibuprofen 600 mg PO Q6H PRN #90 tablet 08/12/20 08/13/20 Rx Allergies Allergy/AdvReac Type Severity Reaction Status Date / Time No Known Allergies Allergy Verified 07/15/20 14:32 Vital Signs Vital Signs - 24 hr 08/13/20 02:15 08/13/20 02:40 08/13/20 03:00 Temperature Pulse Rate 96 96 95 Respiratory Rate Blood Pressure 146/98 H 133/96 H 08/13/20 04:00 08/13/20 04:45 08/13/20 04:46 Temperature 98.7 F Pulse Rate 89 96 97 Respiratory Rate Blood Pressure 157/95 H 145/100 H 08/13/20 04:47 08/13/20 05:00 08/13/20 05:01 Temperature Pulse Rate 97 98 99 Respiratory Rate Blood Pressure 138/99 H 136/94 H 08/13/20 05:14 08/13/20 05:26 08/13/20 06:00 Temperature Pulse Rate 104 H 104 H 102 H Respiratory Rate Blood Pressure 137/92 H 142/96 H 139/90 08/13/20 06:31 08/13/20 06:32 08/13/20 07:00 Temperature 98.3 F 97.8 F Pulse Rate 102 H 102 H 102 H Respiratory Rate 16 Blood Pressure 133/88 133/88 135/84 08/13/20 08:00 08/13/20 09:00 08/13/20 10:00 Temperature Pulse Rate 113 H 107 H
--- NOTE | 2020-08-13 20:42 | WPDHPUPDATE1 ---
History and Physical Update Update Date/Time: 08/13/20 20:42 History and Physical has been reviewed, including an updated exam of the patient. There are NO changes in the patient's condition. Risks, benefits, and alternatives have been discussed and questions answered. Patient agrees to proceed with procedure. preeclampsia treated with magnesium sulfate and labetalol
--- NOTE | 2020-08-13 20:43 | WPDOBADMIT ---
Obstetrics - Admit Note Admission Note: record reviewed. No pertinent additions to the history and/or any subsequent changes in the physical findings that are not consistent with the expected course of the were found. Additions to the history and/or subsequent changes in the physical findings follow. None. preeclampsia treated with magnesium sulfate and labetalol
[2020-08-14] VITALS (7 sets, daily range): BP systolic 132–136; BP diastolic 88–94; PULSE 88–106; TEMP 36.3–36.6; O2SAT 99
[2020-08-14] MEDS: MAGNESIUM SULF 20GM/WATER500ML 500 ML 50 MG IV CONT (00:42)
--- NOTE | 2020-08-14 05:56 | PC.NURSE ---
Addendum entered by Qamar Skelton RN 08/14/20 06:00: THIS NOTE SHOULD HAVE TIMED 2200. Original Note: Patient states she is feeling better than this AM. Continues to feel weak. Pt states she feels weakness is due to Mag. Boyfriend remains at bedside with . Pt has not held baby since his arrival. States she is afraid to hold due to weakness.
--- NOTE | 2020-08-14 09:00 | PC.NURSE ---
Dr. Santos called to check on pt status. Informed of BPs and reflexes 4+ with 1 beat of clonus. Call with update at 1200.
[2020-08-14 10:01] LABS: Basophils Percent Auto 0.3 % (0.2-1.2); Eosinophils Absolute Auto 0.1 K/mm3 (0-0.3); Eosinophils Percent Auto 1.4 % (0-4.4); Hemoglobin 8.4 g/dL (12.0-15.0); Immature Granulocyte Absolute 0.02 K/mm3 (0.00-0.031); Immature Granulocyte Percent A 0.2 % (0-0.5); Lymphocytes Absolute Auto 2.08 K/mm3 (0.9-3.2); Lymphocytes Percent Auto 23.6 % (18.3-44.2); Mean Corpuscular Hemoglobin 23.5 pg (26-34); Mean Corpuscular Volume 78.4 fl (80-100); Mean Platelet Volume 10.5 fl (7.4-10.4); Monocytes Absolute Auto 0.4 K/mm3 (0.1-0.6); Monocytes Percent Auto 4.8 % (2.6-8.5); Neutrophils Absolute Auto 6.1 K/mm3 (1.3-6.7); Neutrophils Percent Auto 69.7 % (45.5-73.1); Platelet Count Result 191 k/mm3 (150-375); Red Blood Count 3.57 M/mm3 (4.2-5.4); Red Cell Distribution Width 25.1 % (11.5-14.5); White Blood Count 8.8 K/mm3 (4.5-10.0)
--- NOTE | 2020-08-14 10:10 | PC.NURSE ---
Pt states that she had a small nosebleed.
[2020-08-14 10:13] LABS: Alanine Aminotransferase 41 U/L (4-35); Albumin Level 3.4 g/dL (3.5-5.1); Alkaline Phosphatase 119 U/L (38-126); Anion Gap 9 mmol/L (8-16); Aspartate Amino Transferase 69 U/L (14-36); Bilirubin,Total 0.2 mg/dL (0.2-1.3); Blood Urea Nitrogen 7 mg/dL (7-17); Calcium 7.1 mg/dL (8.4-10.2); Carbon Dioxide 25 mmol/L (22-30); Chloride 105 mmol/L (98-107); Estimated CRCL calculation 113 ml/min; Estimated Glomerular Filt Rate > 60; Glucose 82 mg/dL (65-105); Potassium 4.4 mmol/L (3.4-5.0); Sodium 139 mmol/L (137-145); Uric Acid 6.2 mg/dL (2.5-7.5)
[2020-08-14] MEDS: LABETALOL HCL 100 MG TABLET 200 MG PO (11:16)
--- NOTE | 2020-08-14 12:10 | PC.NURSE ---
Dr. Santos on unit. Lab results reviewed, BPs given, and was informed of pt's nosebleed. At bedside to discuss plan of care with pt and assess pt. May D/C home. Office will arrange at home BP cuff for pt.
== END 2020-08-14 14:35 | disposition home or self-care (01) ==
LOC: ANHOBPP 02:06
PROVIDERS: Admitting Provider Obstetrics & Gynecology; PCP Pediatrics; Visit Provider Obstetrics & Gynecology
DX: O13.5 Gestational [pregnancy-induced] hypertension without significant proteinuria, complicating the puerperium (principal); O14.95 Unspecified pre-eclampsia, complicating the puerperium
CPT/HCPCS: 36415; 80053; 81001; 82570; 84156; 84550; 85025; 85055; 87086; 96365; 96366; A9270; G0378; G0379; J3475; J7120